=== PATIENT | male | born 1950 | race Caucasian/White ===

== ENCOUNTER 2020-05-12 17:20 | Inpatient (IN) | payer OTHER ==
[~2020-05-12] VITALS: Ht 185.4 cm; Wt 88.7 kg
[~2020-05-12 17:20] MED LIST: AMLO-150 PO; ASPI-650 PO; COLC0.6T37 PO; FOLI-17 PO; GABA-826 PO; LORA-445 PO; LOSA50TA14 PO; METO25TA91 PO; MULT-717 PO; OXYC-302 PO; PRAV40TA2 PO; THIA100T10 PO
[2020-05-12] MEDS ORDERED: ONDANSETRON 2MG/ML, 2ML IVPush ONE (17:30)
[2020-05-12] MEDS ORDERED: SODIUM CHLORIDE FLUSH 10ML SYR IVF ONE (17:30)
[2020-05-12] MEDS ORDERED: PROPOFOL 10 MG/ML, 20ML IVPush ONE (17:30)
--- NOTE | 2020-05-12 17:35 | NUR ---
Bedside report to Tomasa Martins RN. [facility]. Continuous SPO2 and Cardiac monitoring in place. VSS. Fall precautions in place. X-Ray at bedside.
[2020-05-12] MEDS ORDERED: ONDANSETRON 2MG/ML, 2ML ONE (17:37)
[2020-05-12] MEDS ORDERED: PROPOFOL 10 MG/ML, 20ML ONE (17:37)
[2020-05-12] MEDS ORDERED: MORPHINE SULFATE 4 MG/ML, 1ML ONE ×2 (17:37→19:59)
[2020-05-12] MEDS: MORPHINE SULFATE 4 MG/ML, 1ML IVPush PRN ×2 (17:42→20:03)
--- NOTE | 2020-05-12 17:46 | NUR ---
RECEIVED REPORT FROM MILE ALVAREZ. PT RESTING ON [employer]. VSS. MEDICATED PER SEP. CMS TO L FOOT INTACT.
[2020-05-12] MEDS ORDERED: PLEASE ENTER HEIGHT MC SCH (18:00)
[2020-05-12 18:05] LABS: BASOPHILS % (AUTO) 1 % (0-1); EOSINOPHILS % (AUTO) 0 % (1-7); LYMPHOCYTES % (AUTO) 28 % (22-44); MEAN CORPUSCULAR HEMOGLOBIN 35.8 pg (27.5-34.5); MEAN PLATELET VOLUME 8.9 fL (7.4-10.4); MONOCYTES % (AUTO) 11 % (2-9); NEUTROPHILS % (AUTO) 60 % (42-75); RED CELL DISTRIBUTION WIDTH 13.1 % (9.4-14.8)
[2020-05-12 18:14] LABS: CHLORIDE 111 mmol/L (98-107)
--- NOTE | 2020-05-12 18:20 | NUR ---
PROCEDURAL SEDATION: CONSENT SIGNED BY LA, THIS RN WITNESS AND ERP DR. CABALLERO. 1802 START OF PROCEDURE; TIME OUT 1803 30 MG PROPROFOL GIVEN 1804 20 MG PROPROFOL GIVEN 1804 20 MG PROPROFOL GIVEN 1805 10 MG PROPROFOL GIVEN 1805 10 MG PROPROFOL GIVEN 1806 10 MG PROPROFOL GIVEN 1806 10 MG PROPROFOL GIVEN 1808 5 MG PROPROFOL GIVEN 1811 10 MG PROPROFOL GIVEN 1811 10 MG PROPROFOL GIVEN 1812 END OF PROCEDURE PT TOLERATED WELL. NADN. CURRENTLY AWAKE AND ALERT. AOX4.
[2020-05-12 18:24] LABS: ALANINE AMINOTRANSFERASE 152 U/L (12-78); ALBUMIN 2.9 g/dL (3.4-5.0); ALKALINE PHOSPHATASE 208 U/L (45-117); ANION GAP 13 mmol/L (5-15); BILIRUBIN,TOTAL 2.3 mg/dL (0.2-1.0); CALCIUM 6.7 mg/dL (8.5-10.1); CREATININE 2.01 mg/dL (0.7-1.3); TOTAL PROTEIN 6.3 g/dL (6.4-8.2); TROPONIN I < 0.015 ng/mL (0.000-0.045)
[2020-05-12 18:29] LABS: T4 (THYROXINE) 11.4 mcg/dL (4.5-12.1)
--- NOTE | 2020-05-12 18:32 | NUR ---
SEE PAPER CHART FOR UPDATED VS [phone]
[2020-05-12 18:45] LABS: PLATELET COUNT 49 x10^3/uL (130-400)
[2020-05-12 18:47] LABS: MD MORPH REVIEW ONLY
[2020-05-12 18:51] LABS: <PLATELET ESTIMATE> DECREASED; <PLT MORPHOLOGY> NORMAL PLT MORPH; OVALOCYTES 1+
--- NOTE | 2020-05-12 18:56 | NUR ---
[facility]ior m[facility] in ED - 05/12/20 at 1914 by BNICHOLS REPORT GIVEN TO NIC MIRANDA RN.
[2020-05-12] MEDS ORDERED: SODIUM CHLORIDE 0.9% 1,000ML IVBOLUS ONE (19:00)
--- NOTE | 2020-05-12 19:14 | NUR ---
REPORT GIVEN TO NIC ZAPATA RN.
--- NOTE | 2020-05-12 19:34 | NUR ---
127/72 L arm lying 117/69 L arm sitting 103/51 L arm standing
[2020-05-12] MEDS ORDERED: DOCUSATE 100 MG CAPSULE PO PRN (20:00)
[2020-05-12] MEDS ORDERED: LABETALOL 5MG/ML, 20ML IVPush PRN (20:00)
[2020-05-12] MEDS ORDERED: ONDANSETRON 2MG/ML, 2ML IVPush PRN (20:00)
[2020-05-12] MEDS ORDERED: LORazepam 2 MG/ML, 1ML IV PRN ×5 (20:00)
--- NOTE | 2020-05-12 20:34 | NUR ---
Report given to MILE Mars.
[2020-05-12] MEDS ORDERED: GABAPENTIN 100 MG CAPSULE PO SCH (21:00)
[2020-05-12 21:52] VITALS: BP 132/76
[2020-05-12 21:53] VITALS: BP_SYST 114; BP_SYST 95; BP_DIAS 59; BP_DIAS 72
[2020-05-12 22:31] LABS: TROPONIN I < 0.015 ng/mL (0.000-0.045)
[2020-05-12] MEDS ORDERED: PRAV40TA2 PO (22:47)
[2020-05-12] MEDS: POTASSIUM CHLORIDE 20 MEQ, MAGNESIUM SULFATE 1 GM, THIAMINE 200 MG, FOLIC ACID 1 MG, MV... IV SCH (22:49)
[2020-05-12] MEDS: LORazepam 1MG TABLET PO PRN (23:00)
[2020-05-12] MEDS ORDERED: LORazepam 1MG TABLET PO PRN ×3 (23:00)
[2020-05-12] MEDS ORDERED: LORazepam 0.5MG TABLET PO PRN (23:00)
[2020-05-12 23:43] VITALS: BP_SYST 114; BP_SYST 132; BP_SYST 95; BP_DIAS 59; BP_DIAS 72; BP_DIAS 76
[2020-05-13] MEDS ORDERED: FLU VACC QS2020-21(6MOS UP)/PF 60MCG/0.5 ML SYR IM ONE
[2020-05-13] MEDS: LORazepam 1MG TABLET PO PRN (02:00)
[2020-05-13 02:08] VITALS: BP 134/75
[2020-05-13] MEDS: SODIUM CHLORIDE 0.9% 1,000 ML IV SCH ×2 (03:06→12:10)
[2020-05-13 05:13] LABS: CALCIUM 6.6 mg/dL (8.5-10.1); CHLORIDE 113 mmol/L (98-107)
[2020-05-13 05:21] LABS: ALANINE AMINOTRANSFERASE 139 U/L (12-78); ALKALINE PHOSPHATASE 192 U/L (45-117); ANION GAP 9 mmol/L (5-15); BILIRUBIN,TOTAL 2.2 mg/dL (0.2-1.0); CREATININE 1.49 mg/dL (0.7-1.3); TOTAL PROTEIN 6.2 g/dL (6.4-8.2); TROPONIN I < 0.015 ng/mL (0.000-0.045)
[2020-05-13] MEDS: MORPHINE SULFATE 4 MG/ML, 1ML IVPush PRN ×2 (05:25→12:54)
[2020-05-13 05:36] LABS: BASOPHILS % (AUTO) 1 % (0-1); EOSINOPHILS % (AUTO) 0 % (1-7); LYMPHOCYTES % (AUTO) 21 % (22-44); MEAN CORPUSCULAR HEMOGLOBIN 35.6 pg (27.5-34.5); MEAN CORPUSCULAR HGB CONC 33.8 g/dL (33.2-36.2); MEAN PLATELET VOLUME 9.5 fL (7.4-10.4); MONOCYTES % (AUTO) 8 % (2-9); NEUTROPHILS % (AUTO) 71 % (42-75); RED BLOOD COUNT 2.79 x10^6/uL (4.38-5.82)
[2020-05-13 05:51] LABS: PLATELET COUNT 40 x10^3/uL (130-400)
[2020-05-13 06:19] LABS: MD MORPH REVIEW ONLY
[2020-05-13 06:21] LABS: <PLATELET ESTIMATE> DECREASED; OVALOCYTES 1+
[2020-05-13 06:22] LABS: <PLT MORPHOLOGY> NORMAL PLT MORPH
[2020-05-13] MEDS: AMLODIPINE 5 MG TABLET PO SCH (08:36)
[2020-05-13] MEDS: ASPIRIN 325 MG TABLET EC PO SCH (08:36)
[2020-05-13] MEDS ORDERED: METOPROLOL SUCCINATE 25 MG TAB.ER.24H PO SCH (09:00)
[2020-05-13] MEDS ORDERED: LOSARTAN 50MG TABLET PO SCH (09:00)
[2020-05-13 09:19] LABS: AMPHETAMINE SCREEN, URINE Negative (Negative); BARBITURATE SCREEN, URINE Negative (Negative); BENZODIAZEPINE SCREEN, URINE Negative (Negative); CANNABINOID SCREEN, URINE Negative (Negative); COCAINE SCREEN, URINE Negative (Negative); METHADONE SCREEN, URINE Negative (Negative); OPIATE SCREEN, URINE Positive (Negative)
[2020-05-13] MEDS: CHLORDIAZEPOXIDE 25 MG CAPSULE PO SCH ×4 (09:22→20:51)
[2020-05-13 09:25] LABS: CHLORIDE,URINE RANDOM 73 mmol/L; POTASSIUM,URINE RANDOM 41 mmol/L; SODIUM,URINE RANDOM 55 mmol/L
[2020-05-13 09:27] VITALS: BP 151/83
[2020-05-13 09:28] VITALS: BP 143/89
[2020-05-13 12:10] VITALS: BP 128/80
[2020-05-13 20:48] VITALS: BP 156/80
[2020-05-13] MEDS: POTASSIUM CHLORIDE 20 MEQ, MAGNESIUM SULFATE 1 GM, THIAMINE 200 MG, FOLIC ACID 1 MG, MV... IV SCH (21:42)
[2020-05-14 00:18] VITALS: BP 147/84
[2020-05-14] MEDS: CHLORDIAZEPOXIDE 25 MG CAPSULE PO SCH (05:58)
[2020-05-14 06:06] LABS: BASOPHILS % (AUTO) 0 % (0-1); EOSINOPHILS % (AUTO) 0 % (1-7); LYMPHOCYTES % (AUTO) 19 % (22-44); MEAN CORPUSCULAR HEMOGLOBIN 35.9 pg (27.5-34.5); MEAN CORPUSCULAR HGB CONC 34.2 g/dL (33.2-36.2); MEAN PLATELET VOLUME 9.7 fL (7.4-10.4); MONOCYTES % (AUTO) 11 % (2-9); NEUTROPHILS % (AUTO) 69 % (42-75); RED BLOOD COUNT 2.51 x10^6/uL (4.38-5.82); RED CELL DISTRIBUTION WIDTH 12.8 % (9.4-14.8)
[2020-05-14 06:07] LABS: ALBUMIN 2.6 g/dL (3.4-5.0); ANION GAP 5 mmol/L (5-15); CALCIUM 6.1 mg/dL (8.5-10.1); CHLORIDE 111 mmol/L (98-107)
[2020-05-14 06:11] LABS: ALANINE AMINOTRANSFERASE 121 U/L (12-78); ALKALINE PHOSPHATASE 156 U/L (45-117); BILIRUBIN,TOTAL 4.1 mg/dL (0.2-1.0); TOTAL PROTEIN 5.6 g/dL (6.4-8.2)
[2020-05-14 06:35] LABS: MD SCAN; PLATELET COUNT 34 x10^3/uL (130-400)
[2020-05-14 08:18] VITALS: BP 144/87
[2020-05-14] MEDS: MULTIVITAMIN 1 TABLET PO SCH (08:25)
[2020-05-14] MEDS: FOLIC ACID 1 MG TABLET PO SCH (08:25)
[2020-05-14] MEDS: THIAMINE 100MG TABLET PO SCH (08:25)
[2020-05-14] MEDS: ASPIRIN 325 MG TABLET EC PO SCH (08:25)
[2020-05-14] MEDS: AMLODIPINE 5 MG TABLET PO SCH (08:25)
[2020-05-14] MEDS: SODIUM CHLORIDE 0.9% 1,000 ML IV SCH ×3 (11:00→20:35)
[2020-05-14] MEDS: LOSARTAN 50MG TABLET PO SCH (11:49)
[2020-05-14 12:01] VITALS: BP 147/77
[2020-05-14 20:00] VITALS: BP 128/69
[2020-05-14] MEDS: PRAVASTATIN 40 MG TABLET PO SCH (20:34)
[2020-05-15 01:34] VITALS: BP 154/81
[2020-05-15 05:30] LABS: ALANINE AMINOTRANSFERASE 110 U/L (12-78); ALBUMIN 2.5 g/dL (3.4-5.0); ANION GAP 9 mmol/L (5-15); CHLORIDE 109 mmol/L (98-107)
[2020-05-15 05:32] LABS: ALKALINE PHOSPHATASE 149 U/L (45-117); BASOPHILS % (AUTO) 0 % (0-1); BILIRUBIN,TOTAL 4.7 mg/dL (0.2-1.0); CREATININE 0.66 mg/dL (0.7-1.3); EOSINOPHILS % (AUTO) 1 % (1-7); LYMPHOCYTES % (AUTO) 18 % (22-44); MEAN CORPUSCULAR HEMOGLOBIN 36.3 pg (27.5-34.5); MEAN CORPUSCULAR HGB CONC 34.8 g/dL (33.2-36.2); MEAN PLATELET VOLUME 9.6 fL (7.4-10.4); MONOCYTES % (AUTO) 11 % (2-9); NEUTROPHILS % (AUTO) 70 % (42-75); RED BLOOD COUNT 2.58 x10^6/uL (4.38-5.82); RED CELL DISTRIBUTION WIDTH 12.5 % (9.4-14.8); TOTAL PROTEIN 5.5 g/dL (6.4-8.2)
[2020-05-15 05:49] LABS: PLATELET COUNT 37 x10^3/uL (130-400)
[2020-05-15 06:21] LABS: MD SCAN
[2020-05-15] MEDS: SODIUM CHLORIDE 0.9% 1,000 ML IV SCH ×2 (06:30→16:47)
[2020-05-15 08:29] VITALS: BP 155/81
[2020-05-15] MEDS: FOLIC ACID 1 MG TABLET PO SCH (08:49)
[2020-05-15] MEDS: MULTIVITAMIN 1 TABLET PO SCH (08:49)
[2020-05-15] MEDS: ASPIRIN 325 MG TABLET EC PO SCH (08:49)
[2020-05-15] MEDS: THIAMINE 100MG TABLET PO SCH (08:49)
[2020-05-15] MEDS: LOSARTAN 50MG TABLET PO SCH (08:50)
[2020-05-15] MEDS: AMLODIPINE 5 MG TABLET PO SCH (08:50)
[2020-05-15 12:33] VITALS: BP 144/75
[2020-05-15] MEDS: MORPHINE SULFATE 4 MG/ML, 1ML IVPush PRN ×2 (13:14→19:42)
[2020-05-15 19:24] VITALS: BP 161/88
[2020-05-15] MEDS: PRAVASTATIN 40 MG TABLET PO SCH (22:35)
[2020-05-16 02:15] VITALS: BP 140/77
[2020-05-16 05:40] LABS: BASOPHILS % (AUTO) 2 % (0-1); EOSINOPHILS % (AUTO) 1 % (1-7); LYMPHOCYTES % (AUTO) 19 % (22-44); MEAN CORPUSCULAR HEMOGLOBIN 36.6 pg (27.5-34.5); MEAN CORPUSCULAR HGB CONC 34.7 g/dL (33.2-36.2); MEAN PLATELET VOLUME 8.8 fL (7.4-10.4); MONOCYTES % (AUTO) 14 % (2-9); NEUTROPHILS % (AUTO) 65 % (42-75); PLATELET COUNT 53 x10^3/uL (130-400); RED BLOOD COUNT 2.44 x10^6/uL (4.38-5.82); RED CELL DISTRIBUTION WIDTH 12.5 % (9.4-14.8)
[2020-05-16 05:46] LABS: ALANINE AMINOTRANSFERASE 91 U/L (12-78); ALBUMIN 2.2 g/dL (3.4-5.0); ANION GAP 7 mmol/L (5-15); CHLORIDE 111 mmol/L (98-107); CREATININE 0.64 mg/dL (0.7-1.3)
[2020-05-16 05:48] LABS: ALKALINE PHOSPHATASE 152 U/L (45-117); BILIRUBIN,TOTAL 4.2 mg/dL (0.2-1.0); TOTAL PROTEIN 5.3 g/dL (6.4-8.2)
[2020-05-16 06:09] LABS: CALCIUM 5.8 mg/dL (8.5-10.1)
[2020-05-16 06:24] LABS: MD SCAN
[2020-05-16] MEDS ORDERED: CALCIUM GLUCONATE 4.6 MEQ/10 ML IVPush ONE ×2 (07:00→13:30)
[2020-05-16] MEDS ORDERED: CALCIUM GLUCONATE 9.2 MEQ in SODIUM CHLORIDE 0.9% 100 ML IV ONE ×2 (07:30→15:00)
[2020-05-16 07:54] VITALS: BP 164/83
[2020-05-16] MEDS: MULTIVITAMIN 1 TABLET PO SCH (08:03)
[2020-05-16] MEDS: THIAMINE 100MG TABLET PO SCH (08:03)
[2020-05-16] MEDS: FOLIC ACID 1 MG TABLET PO SCH (08:03)
[2020-05-16] MEDS: LOSARTAN 50MG TABLET PO SCH (08:03)
[2020-05-16] MEDS: AMLODIPINE 10 MG TAB PO SCH (08:03)
[2020-05-16] MEDS: ASPIRIN 325 MG TABLET EC PO SCH (08:03)
[2020-05-16] MEDS ORDERED: POTASSIUM CHLORIDE 20 MEQ TAB.ER.PRT PO ONE (10:00)
[2020-05-16] MEDS: MORPHINE SULFATE 4 MG/ML, 1ML IVPush PRN (12:18)
[2020-05-16] MEDS ORDERED: LOSARTAN 50MG TABLET PO ONE (13:30)
[2020-05-16 14:40] VITALS: BP 139/78
[2020-05-16] MEDS ORDERED: CALCIUM CHLORIDE 27.2 MEQ in SODIUM CHLORIDE 0.9% 100 ML IV ONE (15:00)
[2020-05-16] MEDS: SODIUM CHLORIDE 0.9% 1,000 ML IV SCH (15:37)
[2020-05-16] MEDS: K-PHOS NEUTRAL 250MG TAB PO SCH ×2 (15:38→21:02)
[2020-05-16] MEDS ORDERED: MAGNESIUM SULFATE PMX 4GM/100M 100 ML IVPB ONE (16:30)
[2020-05-16 19:02] VITALS: BP 150/79
[2020-05-16] MEDS: PRAVASTATIN 40 MG TABLET PO SCH (21:02)
[2020-05-17 00:03] VITALS: BP 149/74
[2020-05-17] MEDS: SODIUM CHLORIDE 0.9% 1,000 ML IV SCH ×3 (04:14→23:00)
[2020-05-17 05:54] LABS: BASOPHILS % (AUTO) 1 % (0-1); EOSINOPHILS % (AUTO) 1 % (1-7); LYMPHOCYTES % (AUTO) 23 % (22-44); MEAN CORPUSCULAR HEMOGLOBIN 36.3 pg (27.5-34.5); MEAN CORPUSCULAR HGB CONC 34.6 g/dL (33.2-36.2); MEAN PLATELET VOLUME 8.3 fL (7.4-10.4); MONOCYTES % (AUTO) 17 % (2-9); NEUTROPHILS % (AUTO) 58 % (42-75); PLATELET COUNT 74 x10^3/uL (130-400); RED CELL DISTRIBUTION WIDTH 12.8 % (9.4-14.8)
[2020-05-17 05:56] LABS: ALBUMIN 2.2 g/dL (3.4-5.0); ANION GAP 9 mmol/L (5-15); CALCIUM 6.7 mg/dL (8.5-10.1); CHLORIDE 110 mmol/L (98-107)
[2020-05-17 05:59] LABS: ALANINE AMINOTRANSFERASE 88 U/L (12-78); ALKALINE PHOSPHATASE 156 U/L (45-117); BILIRUBIN,TOTAL 4.2 mg/dL (0.2-1.0); TOTAL PROTEIN 5.3 g/dL (6.4-8.2)
[2020-05-17 06:02] LABS: MD NO
[2020-05-17] MEDS ORDERED: CALCIUM GLUCONATE 4.6 MEQ/10 ML IVPush ONE ×2 (07:00→15:00)
[2020-05-17] MEDS ORDERED: MAGNESIUM SULFATE PMX 2GM/50ML 50 ML IV ONE ×2 (07:00→15:00)
[2020-05-17] MEDS ORDERED: CALCIUM GLUCONATE 9.2 MEQ in SODIUM CHLORIDE 0.9% 100 ML IV ONE ×2 (07:30→15:00)
[2020-05-17 08:03] VITALS: BP 155/74
[2020-05-17] MEDS: LOSARTAN 100 MG TAB PO SCH (08:37)
[2020-05-17] MEDS: K-PHOS NEUTRAL 250MG TAB PO SCH ×2 (08:39→21:44)
[2020-05-17] MEDS: THIAMINE 100MG TABLET PO SCH (08:40)
[2020-05-17] MEDS: AMLODIPINE 10 MG TAB PO SCH (08:40)
[2020-05-17] MEDS: ASPIRIN 325 MG TABLET EC PO SCH (08:40)
[2020-05-17] MEDS: FOLIC ACID 1 MG TABLET PO SCH (08:41)
[2020-05-17] MEDS: CHOLECALCIFEROL 5,000u TAB PO SCH (08:42)
[2020-05-17] MEDS: POTASSIUM CHLORIDE 20 MEQ TAB.ER.PRT PO SCH ×2 (08:42→16:27)
[2020-05-17] MEDS: MULTIVITAMIN 1 TABLET PO SCH (08:43)
[2020-05-17 14:01] VITALS: BP 150/77
[2020-05-17] MEDS: MORPHINE SULFATE 4 MG/ML, 1ML IVPush PRN ×2 (16:27→22:30)
[2020-05-17 20:25] VITALS: BP 143/83
[2020-05-17] MEDS: PRAVASTATIN 40 MG TABLET PO SCH (21:45)
[2020-05-18 04:37] VITALS: BP 145/82
[2020-05-18 05:50] LABS: BASOPHILS % (AUTO) 1 % (0-1); EOSINOPHILS % (AUTO) 1 % (1-7); LYMPHOCYTES % (AUTO) 27 % (22-44); MEAN CORPUSCULAR HEMOGLOBIN 36.3 pg (27.5-34.5); MEAN CORPUSCULAR HGB CONC 34.4 g/dL (33.2-36.2); MEAN PLATELET VOLUME 8.3 fL (7.4-10.4); MONOCYTES % (AUTO) 19 % (2-9); NEUTROPHILS % (AUTO) 52 % (42-75); PLATELET COUNT 91 x10^3/uL (130-400); RED BLOOD COUNT 2.43 x10^6/uL (4.38-5.82); RED CELL DISTRIBUTION WIDTH 12.9 % (9.4-14.8)
[2020-05-18 05:59] LABS: MD NO
[2020-05-18 06:02] LABS: ALBUMIN 2.1 g/dL (3.4-5.0); ANION GAP 6 mmol/L (5-15); CALCIUM 7.6 mg/dL (8.5-10.1); CHLORIDE 110 mmol/L (98-107)
[2020-05-18 06:05] LABS: ALANINE AMINOTRANSFERASE 74 U/L (12-78); ALKALINE PHOSPHATASE 145 U/L (45-117); BILIRUBIN,TOTAL 3.4 mg/dL (0.2-1.0); CREATININE 0.57 mg/dL (0.7-1.3); TOTAL PROTEIN 5.1 g/dL (6.4-8.2)
[2020-05-18] MEDS ORDERED: MAGNESIUM SULFATE PMX 2GM/50ML 50 ML IV ONE (07:00)
[2020-05-18 08:30] VITALS: BP 166/79
[2020-05-18] MEDS: ASPIRIN 325 MG TABLET EC PO SCH (09:00)
[2020-05-18] MEDS: LOSARTAN 100 MG TAB PO SCH (09:03)
[2020-05-18] MEDS: FOLIC ACID 1 MG TABLET PO SCH (09:04)
[2020-05-18] MEDS: K-PHOS NEUTRAL 250MG TAB PO SCH ×2 (09:04→21:01)
[2020-05-18] MEDS: CHOLECALCIFEROL 5,000u TAB PO SCH (09:05)
[2020-05-18] MEDS: AMLODIPINE 10 MG TAB PO SCH (09:06)
[2020-05-18] MEDS: THIAMINE 100MG TABLET PO SCH (09:06)
[2020-05-18] MEDS: MULTIVITAMIN 1 TABLET PO SCH (09:07)
[2020-05-18] MEDS ORDERED: CHLORHEXIDINE 15 ML UDC ONE (11:38)
[2020-05-18] MEDS ORDERED: CHLORHEXIDINE 15 ML UDC MM ONE (12:00)
[2020-05-18] MEDS ORDERED: EPINEPHRINE 1 MG/ML, 1ML ONE (12:06)
[2020-05-18] MEDS ORDERED: BUPIVACAINE/PF 0.5% ONE ×2 (12:06→12:27)
[2020-05-18] MEDS ORDERED: FENTANYL PF 250 MCG/5ML ONE (12:25)
[2020-05-18] MEDS ORDERED: MIDAZOLAM 1 MG/ML, 2ML ONE (12:26)
[2020-05-18] MEDS ORDERED: LIDOCAINE-MPF 2% ,5ML ONE (12:27)
[2020-05-18] MEDS ORDERED: LIDOCAINE PF 2%, 5ML ONE (12:29)
[2020-05-18] MEDS ORDERED: KETOROLAC 30 MG/1 ML ONE (12:42)
[2020-05-18] MEDS ORDERED: ACETAMINOPHEN 325 MG TABLET PO PRN (13:00)
[2020-05-18] MEDS ORDERED: FENTANYL PF 100 MCG/2ML IV PRN (13:00)
[2020-05-18] MEDS ORDERED: hydrALAzine 20 MG/ML, 1ML IV PRN (13:00)
[2020-05-18] MEDS ORDERED: HYDROmorphone 1 MG/ML, 1ML INJ IVPush PRN (13:00)
[2020-05-18] MEDS ORDERED: PROMETHAZINE 25 MG/ML, 1ML IVPush PRN (13:00)
[2020-05-18] MEDS ORDERED: LABETALOL 5MG/ML, 20ML IV PRN (13:00)
[2020-05-18] MEDS ORDERED: MEPERIDINE/PF 25MG/0.5ML IVPush PRN (13:00)
[2020-05-18] MEDS ORDERED: ONDANSETRON 2MG/ML, 2ML IVPush PRN (13:00)
[2020-05-18] MEDS ORDERED: EPHEDRINE 50 MG/ML, 1ML IVPush PRN (13:00)
[2020-05-18] MEDS ORDERED: OXYcodone 5 MG/5 ML ORAL.SOL UDC PO PRN (13:00)
[2020-05-18] MEDS ORDERED: PHENYLEPHRINE 10 MG/ML ONE (13:19)
[2020-05-18] MEDS ORDERED: ONDANSETRON 2MG/ML, 2ML ONE (14:32)
[2020-05-18] MEDS ORDERED: PROPOFOL 10 MG/ML, 20ML ONE (14:32)
[2020-05-18] MEDS ORDERED: DEXAMETHASONE 4 MG/ML, 1ML ONE (14:32)
[2020-05-18] MEDS ORDERED: CEFAZOLIN 1,000 MG ONE (14:32)
[2020-05-18 20:45] VITALS: BP 154/82
[2020-05-18] MEDS: CEFAZOLIN PMX 2GM/50ML 50 ML IVPB SCH (20:54)
[2020-05-18] MEDS: PRAVASTATIN 40 MG TABLET PO SCH (21:00)
[2020-05-19 01:36] VITALS: BP 117/66
[2020-05-19] MEDS: CEFAZOLIN PMX 2GM/50ML 50 ML IVPB SCH ×2 (04:45→12:30)
[2020-05-19 05:23] LABS: BASOPHILS % (AUTO) 1 % (0-1); EOSINOPHILS % (AUTO) 0 % (1-7); LYMPHOCYTES % (AUTO) 17 % (22-44); MEAN CORPUSCULAR HEMOGLOBIN 36.6 pg (27.5-34.5); MONOCYTES % (AUTO) 15 % (2-9); NEUTROPHILS % (AUTO) 67 % (42-75); PLATELET COUNT 124 x10^3/uL (130-400); RED BLOOD COUNT 2.68 x10^6/uL (4.38-5.82); RED CELL DISTRIBUTION WIDTH 12.7 % (9.4-14.8)
[2020-05-19 05:25] LABS: ALANINE AMINOTRANSFERASE 85 U/L (12-78); ALBUMIN 2.3 g/dL (3.4-5.0); ANION GAP 8 mmol/L (5-15); CALCIUM 7.5 mg/dL (8.5-10.1); CHLORIDE 112 mmol/L (98-107)
[2020-05-19 05:27] LABS: ALKALINE PHOSPHATASE 185 U/L (45-117); BILIRUBIN,TOTAL 2.9 mg/dL (0.2-1.0); TOTAL PROTEIN 5.8 g/dL (6.4-8.2)
[2020-05-19 05:31] LABS: MD NO
[2020-05-19 08:00] VITALS: BP 157/76
[2020-05-19] MEDS: ASPIRIN 325 MG TABLET EC PO SCH (08:31)
[2020-05-19] MEDS: CHOLECALCIFEROL 5,000u TAB PO SCH (08:31)
[2020-05-19] MEDS: FOLIC ACID 1 MG TABLET PO SCH (08:31)
[2020-05-19] MEDS: LOSARTAN 100 MG TAB PO SCH (08:31)
[2020-05-19] MEDS: MORPHINE SULFATE 4 MG/ML, 1ML IVPush PRN ×3 (08:31→22:53)
[2020-05-19] MEDS: MAGNESIUM OXIDE 400 MG TABLET PO SCH ×2 (08:31→21:08)
[2020-05-19] MEDS: AMLODIPINE 10 MG TAB PO SCH (08:32)
[2020-05-19] MEDS: K-PHOS NEUTRAL 250MG TAB PO SCH ×2 (08:32→21:08)
[2020-05-19] MEDS: MULTIVITAMIN 1 TABLET PO SCH ×2 (08:32→08:40)
[2020-05-19] MEDS: THIAMINE 100MG TABLET PO SCH (08:32)
[2020-05-19] MEDS: OXYcodone/APAP 5/325MG TABLET PO PRN (12:30)
[2020-05-19 13:35] VITALS: BP 146/76
[2020-05-19 20:14] VITALS: BP 120/70
[2020-05-19] MEDS: PRAVASTATIN 40 MG TABLET PO SCH (21:08)
[2020-05-20 04:13] VITALS: BP 129/75
[2020-05-20 05:25] LABS: ALBUMIN 2.1 g/dL (3.4-5.0); ANION GAP 5 mmol/L (5-15); CALCIUM 7.2 mg/dL (8.5-10.1); CHLORIDE 109 mmol/L (98-107)
[2020-05-20 05:27] LABS: ALANINE AMINOTRANSFERASE 60 U/L (12-78); ALKALINE PHOSPHATASE 161 U/L (45-117); BILIRUBIN,TOTAL 1.9 mg/dL (0.2-1.0); CREATININE 0.61 mg/dL (0.7-1.3); TOTAL PROTEIN 5.1 g/dL (6.4-8.2)
[2020-05-20 05:37] LABS: BASOPHILS % (AUTO) 1 % (0-1); EOSINOPHILS % (AUTO) 1 % (1-7); LYMPHOCYTES % (AUTO) 28 % (22-44); MEAN CORPUSCULAR HEMOGLOBIN 36.2 pg (27.5-34.5); MEAN CORPUSCULAR HGB CONC 34.1 g/dL (33.2-36.2); MEAN PLATELET VOLUME 8.2 fL (7.4-10.4); MONOCYTES % (AUTO) 16 % (2-9); NEUTROPHILS % (AUTO) 54 % (42-75); PLATELET COUNT 137 x10^3/uL (130-400); RED BLOOD COUNT 2.44 x10^6/uL (4.38-5.82); RED CELL DISTRIBUTION WIDTH 13.3 % (9.4-14.8)
[2020-05-20 05:47] LABS: MD NO
[2020-05-20 07:33] VITALS: BP 154/75
[2020-05-20] MEDS: MORPHINE SULFATE 4 MG/ML, 1ML IVPush PRN (07:43)
[2020-05-20] MEDS ORDERED: MAGNESIUM SULFATE PMX 4GM/100M 100 ML IVPB ONE (08:30)
[2020-05-20] MEDS: FOLIC ACID 1 MG TABLET PO SCH (08:46)
[2020-05-20] MEDS: AMLODIPINE 10 MG TAB PO SCH (08:46)
[2020-05-20] MEDS: LOSARTAN 100 MG TAB PO SCH (08:46)
[2020-05-20] MEDS: CHOLECALCIFEROL 5,000u TAB PO SCH (08:46)
[2020-05-20] MEDS: MULTIVITAMIN 1 TABLET PO SCH (08:46)
[2020-05-20] MEDS: K-PHOS NEUTRAL 250MG TAB PO SCH ×2 (08:46→22:06)
[2020-05-20] MEDS: POLYETHYLENE GLYCOL 17 GM PACKET PO SCH (08:46)
[2020-05-20] MEDS: MAGNESIUM OXIDE 400 MG TABLET PO SCH ×2 (08:46→22:06)
[2020-05-20] MEDS: ASPIRIN 325 MG TABLET EC PO SCH (08:46)
[2020-05-20] MEDS: THIAMINE 100MG TABLET PO SCH (08:46)
[2020-05-20] MEDS: OXYcodone/APAP 5/325MG TABLET PO PRN ×3 (13:34→22:06)
[2020-05-20 14:02] VITALS: BP 115/50
[2020-05-20 20:38] VITALS: BP 150/74
[2020-05-20] MEDS: PRAVASTATIN 40 MG TABLET PO SCH (22:06)
[2020-05-21 02:04] VITALS: BP 125/76
[2020-05-21] MEDS: OXYcodone/APAP 5/325MG TABLET PO PRN ×3 (06:12→16:11)
[2020-05-21 09:45] VITALS: BP 130/77
[2020-05-21] MEDS: THIAMINE 100MG TABLET PO SCH (10:17)
[2020-05-21] MEDS: LOSARTAN 100 MG TAB PO SCH (10:17)
[2020-05-21] MEDS: MULTIVITAMIN 1 TABLET PO SCH (10:17)
[2020-05-21] MEDS: MAGNESIUM OXIDE 400 MG TABLET PO SCH (10:17)
[2020-05-21] MEDS: POLYETHYLENE GLYCOL 17 GM PACKET PO SCH (10:17)
[2020-05-21] MEDS: FOLIC ACID 1 MG TABLET PO SCH (10:17)
[2020-05-21] MEDS: ASPIRIN 325 MG TABLET EC PO SCH (10:17)
[2020-05-21] MEDS: CHOLECALCIFEROL 5,000u TAB PO SCH (10:17)
[2020-05-21] MEDS: AMLODIPINE 10 MG TAB PO SCH (10:17)
[2020-05-21 10:19] VITALS: BP 139/78
[2020-05-21] MEDS ORDERED: POTASSIUM ACID PHOSPHATE 500 MG TABLET.SOL PO SCH (11:00)
[2020-05-21] MEDS ORDERED: MAGNESIUM SULFATE PMX 4GM/100M 100 ML IVPB ONE (11:00)
[2020-05-21] MEDS ORDERED: AMLO10TA8 PO (11:04)
[2020-05-21] MEDS ORDERED: OXYC5TAB3 PO (11:04)
[2020-05-21] MEDS ORDERED: CHOL500045 PO (11:04)
[2020-05-21] MEDS ORDERED: LOSA100T2 PO (11:04)
[2020-05-21] MEDS ORDERED: MAGN400T50 PO (11:04)
[2020-05-21] MEDS ORDERED: THIA100T67 PO (11:04)
[2020-05-21] MEDS ORDERED: FOLI-17 PO (11:04)
[2020-05-21 12:51] VITALS: BP 131/74
== END 2020-05-21 16:20 | DRG 492 ==
LOC: ED 17:55 → EDIP 19:01 → 5SO 20:47 → 4NE 05-15 18:22
PROVIDERS: ADMIT Family Medicine; ATTEND Internal Medicine
PROC: 0SSGXZZ Reposition Left Ankle Joint, External Approach (ICD-10-PCS; 2020-05-12)
PROC: 2W3RX1Z Immobilization of Left Lower Leg using Splint (ICD-10-PCS; 2020-05-12)
PROC: 0QSH04Z Reposition Left Tibia with Internal Fixation Device, Open Approach (ICD-10-PCS; principal; 2020-05-18 12:00)
DX: S82.852A Displaced trimalleolar fracture of left lower leg, initial encounter for closed fracture (principal); E43 Unspecified severe protein-calorie malnutrition; N17.0 Acute kidney failure with tubular necrosis; D69.3 Immune thrombocytopenic purpura; F10.231 Alcohol dependence with withdrawal delirium; D53.9 Nutritional anemia, unspecified; E78.5 Hyperlipidemia, unspecified; E83.39 Other disorders of phosphorus metabolism; E83.42 Hypomagnesemia; E83.51 Hypocalcemia; E87.6 Hypokalemia; I10 Essential (primary) hypertension; I65.23 Occlusion and stenosis of bilateral carotid arteries; I73.9 Peripheral vascular disease, unspecified; K70.10 Alcoholic hepatitis without ascites; S93.05XA Dislocation of left ankle joint, initial encounter; M10.9 Gout, unspecified; G90.8 Other disorders of autonomic nervous system; Z20.828 Contact with and (suspected) exposure to other viral communicable diseases; Z68.25 Body mass index [BMI] 25.0-25.9, adult; Z86.73 Personal history of transient ischemic attack (TIA), and cerebral infarction without residual deficits; Z23 Encounter for immunization
CPT/HCPCS: 36415; 73600; 73610; 76000; 96374; 99285; J3490; S0020; 70450; 71045; 80053; 80307; 82140; 82306; 82330; 82436; 83735; 83970; 84100; 84132; 84133; 84300; 84436; 84443; 84484; 85025; 87635; 90686; 93005; 93306; 93356; 93880; C1713; G0378; J0171; J0610; J0690; J1100; J1885; J2250; J2405; J2704; J3010; J3411; J3475; J3480; C1769; J2060; J2270; J2370; J7030